=== PATIENT | female | born 1960 | race Caucasian/White ===

== ENCOUNTER → 2019-01-21 | Outpatient (REF) | payer MEDICAID ==
[~2019-01-21] MED LIST: ACEBUTOLOL200 MG OR; ADVAIR DISK1 IN; ADVAIR HF1 IN; ALPRAZOLAM0.5 MG PO; AMOXICILLIN500 MG OR; AMOXICILLIN875 MG OR; ASPIRIN EC325 MG PO; ASPIRIN325 MG PO; ATROVENT H17 MCG/ACT PO; BACTRIM DS1 TAB OR; BACTRIM DS1 TAB PO; COMBIVENT IN; COMBIVENT RESPIMAT IN; DECONG; DOXYCYCL HYC100 MG OR; DUONEB IN; FLEXERIL OR; IBUPROFEN400 MG OR; IBUPROFEN600 MG PO; LORTAB 7.5 OR; MACROBID100 MG PO; MECLIZINE25 MG PO; MEDDOSEPAK OR; MEDDOSEPAK PO; METOPROLOL SUCC25 MG PO; NAPROSYN500 MG OR; NEO/POLY/HC1 % OT; OMEPRAZOLE10 MG PO; ORPHENADRINE100 MG PO; PERCOCET 5/325M1 TAB OR; PRAVASTATIN SOD20 MG PO; PREDNISONE10 MG PO; PREDNISONE20 MG OR; PREDNISONE50 MG PO; PREVACID30 M1 OR; PREVACID30 M1 PO; PRILOSEC20 MG PO; PRILOSEC20 MG/CAP PO; PROAIR HFA108 MCG/AC IN; PROAIR HFA108 MCG/AC PO; PROMETHAZINE25 MG PO; REGLAN10 MG OR; RIFADIN300 MG OR; ROBITUSSIN AC OR; SEPTRA DS1 TAB OR; SINGULAIR10 MG PO; TENORMIN25 M1 PO; TENORMIN25 MG PO; TORADOL OR; TORADOL PO; TRIMOX500 MG PO; TYLENOL500 MG OR; ULTRAM50 M1 PO; ULTRAM50 MG OR; ULTRAM50 MG PO; XANAX0.5 MG PO; XANAX1 MG PO; ZITHROMAX250 MG OR; ZITHROMAX250 MG PO; ZITHROMAX500 MG OR; ZPAK OR
[2019-01-21 09:04] LABS: HEMATOCRIT 48.2 % (37.0-47.0); HEMOGLOBIN 14.9 g/dl (12.0-16.0); IMMATURE GRANULOCYTES 0.4 % (0.0-5.0); MEAN CORPUSCULAR HGB CONC 30.9 g/L CALC (32.0-36.0); NEUT# 5.55 thou/uL (2.00-7.15); RED BLOOD COUNT 5.13 mill/uL (4.20-5.60); RED CELL DISTRI WIDTH 13.4 % (11.5-15.5)
[2019-01-21 09:28] LABS: ALBUMIN 3.9 g/dL (3.2-5.0); ALKALINE PHOSPHATASE 75 u/l (38-126); ANION GAP 12 (6-22 (CALC)); BILIRUBIN, TOTAL 0.3 mg/dL (0.0-1.4); BUN 7 mg/dL (7-17); BUN/CREATININE RATIO 13 (12-20 (CALC)); CALCULATED LDLCHOLESTEROL 124 mg/dL (62-129 (CALC)); CARBON DIOXIDE 30 mmol/l (22-30); CHLORIDE 104 mmol/l (95-108); CHOLESTEROL HDL RATIO 3.8 (<4.4 (CALC)); CREATININE 0.6 mg/dL (0.5-1.0); GFR > 60 ML/MIN (>=60 (CALC)); GFR FOR AFR.AMER. > 60 ML/MIN (>=60 (CALC)); HDL CHOLESTEROL 51 mg/dL (>=40); POTASSIUM 4.5 mmol/l (3.5-5.1); SGOT/AST 20 u/l (14-36); SODIUM 141 mmol/l (137-146); TOTAL CHOLESTEROL 194 mg/dl (0-199); TOTAL PROTEIN 6.6 g/dL (6.3-8.2); TOTAL TRIGLYCERIDES 94 mg/dl (30-149); VLDL CHOLESTROL 19 mg/dl (2-49 (CALC))
[2019-01-21 09:52] LABS: TSH, 3RD GENERATION 2.85 uIU/mL (0.47 - 4.68)
== END | disposition home or self-care (01) ==
LOC: LAB 07:41
PROVIDERS: ATTEND Internal Medicine
DX: J43.1 Panlobular emphysema (principal); R05 Cough

== ENCOUNTER 2019-01-25 10:20 | Emergency (ER) | payer MEDICAID ==
[~2019-01-25] VITALS: Ht 149.9 cm; Wt 89.0 kg
--- NOTE | 2019-01-25 11:25 | NUR ---
BREATHING TREATMENT GIVEN. BREATHING TECH. FOR GOOD DEPOSITION TO THE LUNGS.
== END 2019-01-25 12:18 | disposition home or self-care (01) ==
LOC: ED 10:20
DX: R05 Cough (principal); R06.02 Shortness of breath; R09.81 Nasal congestion; F17.210 Nicotine dependence, cigarettes, uncomplicated

== ENCOUNTER 2019-02-15 10:16 | Emergency (ER) | payer MEDICAID ==
[~2019-02-15] VITALS: Ht 149.9 cm; Wt 90.0 kg
[2019-02-15 11:45] VITALS: BP 153/78
== END 2019-02-15 11:45 | disposition home or self-care (01) ==
LOC: ED 10:16
DX: S39.012A Strain of muscle, fascia and tendon of lower back, initial encounter (principal); M54.5 Low back pain; G89.29 Other chronic pain; J44.9 Chronic obstructive pulmonary disease, unspecified; F17.200 Nicotine dependence, unspecified, uncomplicated; X58.XXXA Exposure to other specified factors, initial encounter

== ENCOUNTER 2019-02-17 16:38 | Emergency (ER) | payer MEDICAID ==
[~2019-02-17] VITALS: Ht 149.9 cm; Wt 86.4 kg
[2019-02-17 17:30] LABS: HEMATOCRIT 47.9 % (37.0-47.0); HEMOGLOBIN 15.1 g/dl (12.0-16.0); IMMATURE GRANULOCYTES 0.6 % (0.0-5.0); MEAN CELL VOLUME 92.3 fL CALC (80.0-100.0); MEAN CORPUSCULAR HGB 29.1 pG CALC (26.0-32.0); MEAN CORPUSCULAR HGB CONC 31.5 g/L CALC (32.0-36.0); NEUT# 5.13 thou/uL (2.00-7.15); RED BLOOD COUNT 5.19 mill/uL (4.20-5.60); RED CELL DISTRI WIDTH 13.5 % (11.5-15.5)
[2019-02-17 17:41] LABS: ALBUMIN 4.1 g/dL (3.2-5.0); ALKALINE PHOSPHATASE 68 u/l (38-126); ANION GAP 12 (6-22 (CALC)); BILIRUBIN, TOTAL 0.3 mg/dL (0.0-1.4); BUN 11 mg/dL (7-17); BUN/CREATININE RATIO 16 (12-20 (CALC)); CARBON DIOXIDE 31 mmol/l (22-30); CHLORIDE 100 mmol/l (95-108); CREATININE 0.7 mg/dL (0.5-1.0); GFR > 60 ML/MIN (>=60 (CALC)); GFR FOR AFR.AMER. > 60 ML/MIN (>=60 (CALC)); POTASSIUM 4.4 mmol/l (3.5-5.1); SGOT/AST 20 u/l (14-36); SODIUM 139 mmol/l (137-146); TOTAL PROTEIN 6.7 g/dL (6.3-8.2)
[2019-02-17 17:53] LABS: MYOGLOBIN 23 ng/mL (0 - 62)
[2019-02-17 18:04] LABS: URINE BILIRUBIN - DIPSTICK NEGATIVE (NEGATIVE); URINE BLOOD DIPSTICK NEGATIVE (NEGATIVE); URINE COLOR YELLOW; URINE GLUCOSE - DIPSTICK NEGATIVE (NEGATIVE); URINE KETONE NEGATIVE (NEGATIVE); URINE LEUK ESTERASE NEGATIVE (NEGATIVE); URINE NITRITE - DIPSTICK NEGATIVE (Negative); URINE PROTEIN - DIPSTICK NEGATIVE (NEG-TRACE); URINE SPECIFIC GRAVITY <=1.005; URINE UROBILINOGEN - DIPSTICK 0.2 E.U./dL (0.2)
[2019-02-17 18:07] LABS: BARBITURATES NEGATIVE (NEGATIVE); COCAINE NEGATIVE (NEGATIVE); METHADONE NEGATIVE (NEGATIVE); OXCYCODONE NEGATIVE (NEGATIVE); TETRAHYDROCANNABIONOL NEGATIVE (NEGATIVE); TRICYLIC ANTIDEPRESSANTS NEGATIVE (NEGATIVE)
[2019-02-17 18:12] LABS: TSH, 3RD GENERATION 1.97 uIU/mL (0.47 - 4.68)
[2019-02-17 19:02] VITALS: BP 106/61
== END 2019-02-17 19:02 | disposition short-term general hospital (02) ==
LOC: ED 16:38
PROVIDERS: Family Medicine
DX: I47.2 Ventricular tachycardia (principal); J98.01 Acute bronchospasm; J44.9 Chronic obstructive pulmonary disease, unspecified; F17.210 Nicotine dependence, cigarettes, uncomplicated; R53.1 Weakness; R42 Dizziness and giddiness

== ENCOUNTER 2019-04-22 22:43 | Emergency (ER) | payer MEDICAID ==
[~2019-04-22] VITALS: Ht 149.9 cm; Wt 85.0 kg
[2019-04-22 23:21] LABS: HEMOGLOBIN 14.6 g/dl (12.0-16.0); IMMATURE GRANULOCYTES 0.8 % (0.0-5.0); MEAN CELL VOLUME 91.3 fL CALC (80.0-100.0); MEAN CORPUSCULAR HGB CONC 31.7 g/L CALC (32.0-36.0); NEUT# 5.89 thou/uL (2.00-7.15); RED BLOOD COUNT 5.04 mill/uL (4.20-5.60); RED CELL DISTRI WIDTH 13.3 % (11.5-15.5)
--- NOTE | 2019-04-22 23:22 | NUR ---
BREATHING TREATMENT GIVEN. BREATHING TECH. FOR GOOD DEPOSITION TO THE LUNGS.
[2019-04-22 23:36] LABS: ALBUMIN 4.1 g/dL (3.2-5.0); ALKALINE PHOSPHATASE 93 u/l (38-126); ANION GAP 11 (6-22 (CALC)); BILIRUBIN, TOTAL 0.2 mg/dL (0.0-1.4); BUN 9 mg/dL (7-17); BUN/CREATININE RATIO 11 (12-20 (CALC)); CARBON DIOXIDE 30 mmol/l (22-30); CHLORIDE 105 mmol/l (95-108); CREATININE 0.8 mg/dL (0.5-1.0); GFR > 60 ML/MIN (>=60 (CALC)); GFR FOR AFR.AMER. > 60 ML/MIN (>=60 (CALC)); POTASSIUM 4.2 mmol/l (3.5-5.1); SGOT/AST 27 u/l (14-36); SODIUM 142 mmol/l (137-146); TOTAL PROTEIN 6.7 g/dL (6.3-8.2)
[2019-04-22 23:49] LABS: MYOGLOBIN 22 ng/mL (0 - 62)
[2019-04-23] MEDS ORDERED: ATENOLOL25 MG PO (00:27)
[2019-04-23 00:41] VITALS: BP 129/78
== END 2019-04-23 00:41 | disposition home or self-care (01) ==
LOC: ED 22:43
PROVIDERS: Family Medicine
DX: R00.0 Tachycardia, unspecified (principal); F41.9 Anxiety disorder, unspecified; F17.200 Nicotine dependence, unspecified, uncomplicated; R00.2 Palpitations; R06.02 Shortness of breath; R50.9 Fever, unspecified

== ENCOUNTER 2019-05-07 22:26 | Emergency (ER) | payer MEDICAID ==
[~2019-05-07] VITALS: Ht 149.9 cm; Wt 85.4 kg
[~2019-05-07 22:26] MED LIST changes: +ATENOLOL25 MG PO
--- NOTE | 2019-05-07 23:01 | NUR ---
BREATHING TREATMENT GIVEN BACK TO BACK WITH 1 DUONEB AND 2 ALBUTEROL. BREATHING TECH. FOR GOOD DEPOSITION TO THE LUNGS.
[2019-05-07 23:10] LABS: HEMATOCRIT 43.4 % (37.0-47.0); HEMOGLOBIN 13.6 g/dl (12.0-16.0); IMMATURE GRANULOCYTES 0.4 % (0.0-5.0); MEAN CELL VOLUME 92.1 fL CALC (80.0-100.0); MEAN CORPUSCULAR HGB 28.9 pG CALC (26.0-32.0); MEAN CORPUSCULAR HGB CONC 31.3 g/L CALC (32.0-36.0); NEUT# 5.03 thou/uL (2.00-7.15); RED BLOOD COUNT 4.71 mill/uL (4.20-5.60); RED CELL DISTRI WIDTH 13.2 % (11.5-15.5)
[2019-05-07] MEDS ORDERED: PREDNISONE50 MG PO (23:53)
[2019-05-08 00:10] VITALS: BP 136/78
== END 2019-05-08 00:10 | disposition home or self-care (01) ==
LOC: ED 22:26
PROVIDERS: Family Medicine
DX: J45.901 Unspecified asthma with (acute) exacerbation (principal); J44.9 Chronic obstructive pulmonary disease, unspecified; F17.200 Nicotine dependence, unspecified, uncomplicated; R05 Cough; R06.2 Wheezing; R06.02 Shortness of breath

== ENCOUNTER 2019-05-14 12:58 | Emergency (ER) | payer MEDICAID ==
[~2019-05-14] VITALS: Ht 149.9 cm; Wt 84.5 kg
[2019-05-14] MEDS ORDERED: DILT-XR120 MG PO (13:39)
[2019-05-14 13:40] LABS: HEMATOCRIT 47.9 % (37.0-47.0); HEMOGLOBIN 15.2 g/dl (12.0-16.0); IMMATURE GRANULOCYTES 0.8 % (0.0-5.0); MEAN CELL VOLUME 91.2 fL CALC (80.0-100.0); MEAN CORPUSCULAR HGB CONC 31.7 g/L CALC (32.0-36.0); NEUT# 8.68 thou/uL (2.00-7.15); RED BLOOD COUNT 5.25 mill/uL (4.20-5.60); RED CELL DISTRI WIDTH 13.4 % (11.5-15.5)
[2019-05-14 13:54] LABS: ALBUMIN 4.3 g/dL (3.2-5.0); ALKALINE PHOSPHATASE 90 u/l (38-126); ANION GAP 13 (6-22 (CALC)); BUN 11 mg/dL (7-17); BUN/CREATININE RATIO 20 (12-20 (CALC)); CARBON DIOXIDE 30 mmol/l (22-30); CHLORIDE 99 mmol/l (95-108); CREATININE 0.5 mg/dL (0.5-1.0); GFR > 60 ML/MIN (>=60 (CALC)); GFR FOR AFR.AMER. > 60 ML/MIN (>=60 (CALC)); POTASSIUM 4.1 mmol/l (3.5-5.1); SGOT/AST 27 u/l (14-36); SODIUM 138 mmol/l (137-146); TOTAL PROTEIN 7.2 g/dL (6.3-8.2)
[2019-05-14 14:01] LABS: BILIRUBIN, TOTAL 0.4 mg/dL (0.0-1.4)
[2019-05-14 14:07] LABS: MYOGLOBIN 19 ng/mL (0 - 62)
[2019-05-14 15:53] LABS: URINE BILIRUBIN - DIPSTICK NEGATIVE (NEGATIVE); URINE BLOOD DIPSTICK NEGATIVE (NEGATIVE); URINE COLOR YELLOW; URINE GLUCOSE - DIPSTICK NEGATIVE (NEGATIVE); URINE KETONE NEGATIVE (NEGATIVE); URINE LEUK ESTERASE NEGATIVE (NEGATIVE); URINE NITRITE - DIPSTICK NEGATIVE (Negative); URINE PROTEIN - DIPSTICK NEGATIVE (NEG-TRACE); URINE SPECIFIC GRAVITY <=1.005; URINE UROBILINOGEN - DIPSTICK 0.2 E.U./dL (0.2)
[2019-05-14 16:17] VITALS: BP 116/59
== END 2019-05-14 16:26 | disposition home or self-care (01) ==
LOC: ED 12:58
PROVIDERS: Emergency Medicine
DX: F41.9 Anxiety disorder, unspecified (principal); R00.2 Palpitations; J44.9 Chronic obstructive pulmonary disease, unspecified; F17.210 Nicotine dependence, cigarettes, uncomplicated
CPT/HCPCS: J2060

== ENCOUNTER 2019-07-01 11:08 | Emergency (ER) | payer MEDICAID ==
[~2019-07-01] VITALS: Ht 149.9 cm; Wt 90.0 kg
[~2019-07-01 11:08] MED LIST changes: +DILT-XR120 MG PO
[2019-07-01] MEDS ORDERED: ASPIRIN81 MG PO (11:23)
[2019-07-01] MEDS ORDERED: ATENOLOL25 MG PO (11:23)
[2019-07-01 11:39] LABS: HEMATOCRIT 49.1 % (37.0-47.0); HEMOGLOBIN 15.4 g/dl (12.0-16.0); IMMATURE GRANULOCYTES 0.8 % (0.0-5.0); MEAN CELL VOLUME 92.5 fL CALC (80.0-100.0); MEAN CORPUSCULAR HGB CONC 31.4 g/L CALC (32.0-36.0); NEUT# 12.05 thou/uL (2.00-7.15); RED BLOOD COUNT 5.31 mill/uL (4.20-5.60); RED CELL DISTRI WIDTH 13.2 % (11.5-15.5)
[2019-07-01 11:56] LABS: ALBUMIN 4.5 g/dL (3.2-5.0); ALKALINE PHOSPHATASE 79 u/l (38-126); ANION GAP 13 (6-22 (CALC)); BILIRUBIN, TOTAL 0.3 mg/dL (0.0-1.4); BUN 10 mg/dL (7-17); BUN/CREATININE RATIO 17 (12-20 (CALC)); CARBON DIOXIDE 29 mmol/l (22-30); CHLORIDE 103 mmol/l (95-108); CREATININE 0.6 mg/dL (0.5-1.0); GFR > 60 ML/MIN (>=60 (CALC)); GFR FOR AFR.AMER. > 60 ML/MIN (>=60 (CALC)); LIPASE 93 u/l (23-300); POTASSIUM 3.8 mmol/l (3.5-5.1); SGOT/AST 20 u/l (14-36); SODIUM 141 mmol/l (137-146); TOTAL PROTEIN 7.4 g/dL (6.3-8.2)
[2019-07-01 11:59] LABS: URINE BILIRUBIN - DIPSTICK NEGATIVE (NEGATIVE); URINE BLOOD DIPSTICK NEGATIVE (NEGATIVE); URINE COLOR YELLOW; URINE GLUCOSE - DIPSTICK NEGATIVE (NEGATIVE); URINE KETONE NEGATIVE (NEGATIVE); URINE LEUK ESTERASE NEGATIVE (NEGATIVE); URINE NITRITE - DIPSTICK NEGATIVE (Negative); URINE PROTEIN - DIPSTICK NEGATIVE (NEG-TRACE); URINE SPECIFIC GRAVITY 1.015; URINE UROBILINOGEN - DIPSTICK 0.2 E.U./dL (0.2)
[2019-07-01] MEDS ORDERED: ONDANSETRON4 MG PO (12:14)
[2019-07-01 12:37] VITALS: BP 129/59
== END 2019-07-01 12:47 | disposition home or self-care (01) ==
LOC: ED 11:08
PROVIDERS: Family Medicine
DX: K52.9 Noninfective gastroenteritis and colitis, unspecified (principal); J44.9 Chronic obstructive pulmonary disease, unspecified; F17.210 Nicotine dependence, cigarettes, uncomplicated; R11.0 Nausea; D72.829 Elevated white blood cell count, unspecified

== ENCOUNTER 2019-07-22 12:34 | Emergency (ER) | payer MEDICAID ==
[~2019-07-22] VITALS: Ht 149.9 cm; Wt 86.6 kg
[~2019-07-22 12:34] MED LIST changes: +ASPIRIN81 MG PO; +ONDANSETRON4 MG PO
[2019-07-22] MEDS ORDERED: CYCLOBENZAPR5 MG PO (14:21)
[2019-07-22] MEDS ORDERED: PREDNISONE50 MG PO (14:21)
[2019-07-22 14:48] VITALS: BP 130/72
== END 2019-07-22 14:50 | disposition home or self-care (01) ==
LOC: ED 12:34
DX: M62.830 Muscle spasm of back (principal); M41.9 Scoliosis, unspecified; J44.9 Chronic obstructive pulmonary disease, unspecified; F17.200 Nicotine dependence, unspecified, uncomplicated

== ENCOUNTER 2019-10-08 18:15 | Emergency (ER) | payer MEDICAID ==
[~2019-10-08] VITALS: Ht 149.9 cm; Wt 82.0 kg
[~2019-10-08 18:15] MED LIST changes: +CYCLOBENZAPR5 MG PO
[2019-10-08] MEDS ORDERED: DOXYCYC MONO100 M2 PO (18:27)
[2019-10-08] MEDS ORDERED: PREDNISONE50 MG PO (18:27)
[2019-10-08 18:30] VITALS: BP 138/77
== END 2019-10-08 18:30 | disposition home or self-care (01) ==
LOC: ED 18:15
DX: J44.9 Chronic obstructive pulmonary disease, unspecified (principal); F17.210 Nicotine dependence, cigarettes, uncomplicated

== ENCOUNTER 2019-10-24 17:16 | Emergency (ER) | payer MEDICAID ==
[~2019-10-24] VITALS: Ht 149.9 cm; Wt 90.0 kg
[~2019-10-24 17:16] MED LIST changes: +DOXYCYC MONO100 M2 PO
[2019-10-24] MEDS ORDERED: TORADOL PO (19:05)
[2019-10-24] MEDS ORDERED: MEDDOSEPAK PO (19:05)
[2019-10-24 19:10] VITALS: BP 136/83
== END 2019-10-24 19:24 | disposition home or self-care (01) ==
LOC: ED 17:16
DX: M25.562 Pain in left knee (principal); J44.9 Chronic obstructive pulmonary disease, unspecified; F17.210 Nicotine dependence, cigarettes, uncomplicated

== ENCOUNTER 2019-10-25 21:44 | Emergency (ER) | payer MEDICAID ==
[~2019-10-25] VITALS: Ht 149.9 cm; Wt 83.6 kg
[2019-10-25 22:25] LABS: HEMATOCRIT 41.7 % (37.0-47.0); HEMOGLOBIN 13.4 g/dl (12.0-16.0); IMMATURE GRANULOCYTES 0.6 % (0.0-5.0); MEAN CELL VOLUME 91.4 fL CALC (80.0-100.0); MEAN CORPUSCULAR HGB 29.4 pG CALC (26.0-32.0); MEAN CORPUSCULAR HGB CONC 32.1 g/L CALC (32.0-36.0); NEUT# 5.51 thou/uL (2.00-7.15); RED BLOOD COUNT 4.56 mill/uL (4.20-5.60)
[2019-10-25 22:37] LABS: ALBUMIN 3.7 g/dL (3.2-5.0); ALKALINE PHOSPHATASE 74 u/l (38-126); BILIRUBIN, TOTAL 0.3 mg/dL (0.0-1.4); BUN 7 mg/dL (7-17); BUN/CREATININE RATIO 14 (12-20 (CALC)); CARBON DIOXIDE 26 mmol/l (22-30); CREATININE 0.5 mg/dL (0.5-1.0); GFR > 60 ML/MIN (>=60 (CALC)); GFR FOR AFR.AMER. > 60 ML/MIN (>=60 (CALC)); SGOT/AST 22 u/l (14-36); TOTAL PROTEIN 6.8 g/dL (6.3-8.2)
[2019-10-25 22:39] LABS: ANION GAP 11 (6-22 (CALC)); CHLORIDE 105 mmol/l (95-108); POTASSIUM 3.6 mmol/l (3.5-5.1); SODIUM 138 mmol/l (137-146)
[2019-10-25 23:33] VITALS: BP 173/75
== END 2019-10-25 23:33 | disposition home or self-care (01) ==
LOC: ED 21:44
DX: F41.9 Anxiety disorder, unspecified (principal); R00.2 Palpitations; J44.9 Chronic obstructive pulmonary disease, unspecified; F17.200 Nicotine dependence, unspecified, uncomplicated; Z99.81 Dependence on supplemental oxygen

== ENCOUNTER 2019-10-29 | Emergency (ER) | payer MEDICAID ==
[2019-10-29 22:51] LABS: HEMATOCRIT 45.5 % (37.0-47.0); HEMOGLOBIN 14.2 g/dl (12.0-16.0); IMMATURE GRANULOCYTES 0.2 % (0.0-5.0); MEAN CELL VOLUME 92.7 fL CALC (80.0-100.0); MEAN CORPUSCULAR HGB 28.9 pG CALC (26.0-32.0); MEAN CORPUSCULAR HGB CONC 31.2 g/L CALC (32.0-36.0); NEUT# 4.97 thou/uL (2.00-7.15); RED BLOOD COUNT 4.91 mill/uL (4.20-5.60); RED CELL DISTRI WIDTH 12.8 % (11.5-15.5)
[2019-10-29 23:06] LABS: ALBUMIN 3.9 g/dL (3.2-5.0); ALKALINE PHOSPHATASE 72 u/l (38-126); ANION GAP 10 (6-22 (CALC)); BILIRUBIN, TOTAL 0.3 mg/dL (0.0-1.4); BUN 5 mg/dL (7-17); BUN/CREATININE RATIO 9 (12-20 (CALC)); CARBON DIOXIDE 27 mmol/l (22-30); CHLORIDE 107 mmol/l (95-108); CREATININE 0.5 mg/dL (0.5-1.0); GFR > 60 ML/MIN (>=60 (CALC)); GFR FOR AFR.AMER. > 60 ML/MIN (>=60 (CALC)); POTASSIUM 4.3 mmol/l (3.5-5.1); SGOT/AST 22 u/l (14-36); SODIUM 139 mmol/l (137-146); TOTAL PROTEIN 6.8 g/dL (6.3-8.2)
== END 2019-10-30 00:55 | disposition home or self-care (01) ==
PROVIDERS: Emergency Medicine
DX: R53.1 Weakness (principal); J44.9 Chronic obstructive pulmonary disease, unspecified; F17.210 Nicotine dependence, cigarettes, uncomplicated

== ENCOUNTER 2019-11-04 | Emergency (ER) | payer MEDICAID ==
--- NOTE | 2019-11-04 21:24 | NUR ---
BREATHING TREATMENT GIVEN. BREATHING TECH. FOR GOOD DEPOSITION TO THE LUNGS.
[2019-11-04 21:26] LABS: HEMATOCRIT 44.5 % (37.0-47.0); HEMOGLOBIN 14.1 g/dl (12.0-16.0); IMMATURE GRANULOCYTES 0.4 % (0.0-5.0); MEAN CELL VOLUME 92.5 fL CALC (80.0-100.0); MEAN CORPUSCULAR HGB 29.3 pG CALC (26.0-32.0); MEAN CORPUSCULAR HGB CONC 31.7 g/L CALC (32.0-36.0); NEUT# 8.79 thou/uL (2.00-7.15); RED BLOOD COUNT 4.81 mill/uL (4.20-5.60)
[2019-11-04 21:27] LABS: URINE BILIRUBIN - DIPSTICK NEGATIVE (NEGATIVE); URINE BLOOD DIPSTICK NEGATIVE (NEGATIVE); URINE COLOR YELLOW; URINE GLUCOSE - DIPSTICK NEGATIVE (NEGATIVE); URINE KETONE NEGATIVE (NEGATIVE); URINE LEUK ESTERASE NEGATIVE (NEGATIVE); URINE NITRITE - DIPSTICK NEGATIVE (Negative); URINE PH 7.5 (4.5-8.0); URINE PROTEIN - DIPSTICK NEGATIVE (NEG-TRACE); URINE SPECIFIC GRAVITY <=1.005; URINE UROBILINOGEN - DIPSTICK 0.2 E.U./dL (0.2)
== END 2019-11-04 22:20 | disposition home or self-care (01) ==
PROVIDERS: Family Medicine
DX: J44.1 Chronic obstructive pulmonary disease with (acute) exacerbation (principal); D72.829 Elevated white blood cell count, unspecified; F17.210 Nicotine dependence, cigarettes, uncomplicated; J18.9 Pneumonia, unspecified organism

== ENCOUNTER 2019-11-05 14:19 | Inpatient (IN) | payer MEDICAID ==
[~2019-11-05] VITALS: Ht 149.9 cm; Wt 83.0 kg
[2019-11-05 14:45] VITALS: BP 112/75
[2019-11-05 16:09] LABS: HEMATOCRIT 43.7 % (37.0-47.0); HEMOGLOBIN 13.9 g/dl (12.0-16.0); IMMATURE GRANULOCYTES 0.4 % (0.0-5.0); MEAN CELL VOLUME 92.6 fL CALC (80.0-100.0); MEAN CORPUSCULAR HGB 29.4 pG CALC (26.0-32.0); MEAN CORPUSCULAR HGB CONC 31.8 g/L CALC (32.0-36.0); NEUT# 5.46 thou/uL (2.00-7.15); RED BLOOD COUNT 4.72 mill/uL (4.20-5.60); RED CELL DISTRI WIDTH 13.3 % (11.5-15.5)
[2019-11-05 17:10] LABS: ALBUMIN 3.8 g/dL (3.2-5.0); ALKALINE PHOSPHATASE 74 u/l (38-126); ANION GAP 11 (6-22 (CALC)); BILIRUBIN, TOTAL 0.2 mg/dL (0.0-1.4); BUN 5 mg/dL (7-17); BUN/CREATININE RATIO 10 (12-20 (CALC)); CARBON DIOXIDE 30 mmol/l (22-30); CHLORIDE 101 mmol/l (95-108); CREATININE 0.5 mg/dL (0.5-1.0); GFR > 60 ML/MIN (>=60 (CALC)); GFR FOR AFR.AMER. > 60 ML/MIN (>=60 (CALC)); POTASSIUM 3.7 mmol/l (3.5-5.1); SGOT/AST 20 u/l (14-36); SODIUM 138 mmol/l (137-146); TOTAL PROTEIN 6.7 g/dL (6.3-8.2)
[2019-11-05 18:40] VITALS: BP 117/74
[2019-11-06 00:12] VITALS: BP 103/58
[2019-11-06 02:57] VITALS: BP 99/58
[2019-11-06 07:45] VITALS: BP 101/53
[2019-11-06 14:44] VITALS: BP 111/54
[2019-11-06 19:52] VITALS: BP 130/59
[2019-11-07 00:23] VITALS: BP 98/69
[2019-11-07 06:02] VITALS: BP 112/61
[2019-11-07 08:10] VITALS: BP 110/78
[2019-11-07 11:00] VITALS: BP 115/41
[2019-11-07 16:00] VITALS: BP 112/62
[2019-11-07 20:08] VITALS: BP 140/59
[2019-11-08] VITALS (7 sets, daily range): BP systolic 102–140; BP diastolic 50–74
[2019-11-09 03:27] VITALS: BP 119/66
[2019-11-09 07:45] VITALS: BP 127/61
[2019-11-09] MEDS ORDERED: AZACTAM2 GM IV (09:56)
[2019-11-09] MEDS ORDERED: PREDNISONE10 MG PO (09:56)
[2019-11-09 11:13] VITALS: BP 115/62
[2019-11-09 15:54] VITALS: BP 121/62
== END 2019-11-09 20:30 | disposition home or self-care (01) | DRG 178 ==
LOC: MS2 14:19
PROVIDERS: ADMIT Internal Medicine; ATTEND Internal Medicine
DX: J15.1 Pneumonia due to Pseudomonas (principal); J44.0 Chronic obstructive pulmonary disease with (acute) lower respiratory infection; J44.1 Chronic obstructive pulmonary disease with (acute) exacerbation; M41.9 Scoliosis, unspecified; M47.9 Spondylosis, unspecified; E66.9 Obesity, unspecified; K44.9 Diaphragmatic hernia without obstruction or gangrene; K21.9 Gastro-esophageal reflux disease without esophagitis; F41.0 Panic disorder [episodic paroxysmal anxiety]; F17.200 Nicotine dependence, unspecified, uncomplicated; Z68.36 Body mass index [BMI] 36.0-36.9, adult; Z99.81 Dependence on supplemental oxygen; Z88.1 Allergy status to other antibiotic agents
CPT/HCPCS: J1650; Q9967; S0073

== ENCOUNTER 2019-11-28 09:22 | Observation (INO) | payer MEDICAID ==
[~2019-11-28] VITALS: Ht 149.9 cm; Wt 83.0 kg
[~2019-11-28 09:22] MED LIST changes: +AZACTAM2 GM IV
--- NOTE | 2019-11-28 09:40 | NUR ---
PT AMB TO ROOM WITH STEADY GAIR
[2019-11-28] MEDS ORDERED: MECLIZINE12.5 M1 PO (09:59)
[2019-11-28] MEDS ORDERED: ROBITUSSIN200 MG/10 PO (09:59)
[2019-11-28 10:31] LABS: HEMATOCRIT 44.7 % (37.0-47.0); HEMOGLOBIN 14.1 g/dl (12.0-16.0); IMMATURE GRANULOCYTES 0.6 % (0.0-5.0); MEAN CELL VOLUME 91.8 fL CALC (80.0-100.0); MEAN CORPUSCULAR HGB CONC 31.5 g/L CALC (32.0-36.0); NEUT# 14.07 thou/uL (2.00-7.15); RED BLOOD COUNT 4.87 mill/uL (4.20-5.60); RED CELL DISTRI WIDTH 13.2 % (11.5-15.5)
--- NOTE | 2019-11-28 10:40 | NUR ---
PT RESTING ON STRETCHER; NO S/S OF DISTRESS NOTED; O2 NC IN PLACE; MONITORING DEVICES IN PLACE; VSS; CALL LIGHT WITHIN REACH; WILL CONTINUE TO MONITOR
[2019-11-28 11:02] LABS: PROTHROMBIN TIME 10.3 SECONDS (9.0-12.5)
[2019-11-28 11:05] LABS: ALBUMIN 4.1 g/dL (3.2-5.0); ALKALINE PHOSPHATASE 66 u/l (38-126); ANION GAP 12 (6-22 (CALC)); BILIRUBIN, TOTAL 0.8 mg/dL (0.0-1.4); BUN 7 mg/dL (7-17); BUN/CREATININE RATIO 17 (12-20 (CALC)); CARBON DIOXIDE 27 mmol/l (22-30); CHLORIDE 102 mmol/l (95-108); CREATININE 0.4 mg/dL (0.5-1.0); GFR > 60 ML/MIN (>=60 (CALC)); GFR FOR AFR.AMER. > 60 ML/MIN (>=60 (CALC)); MAGNESIUM 1.6 mg/dL (1.6-2.3); POTASSIUM 4.5 mmol/l (3.5-5.1); SGOT/AST 36 u/l (14-36); SODIUM 136 mmol/l (137-146)
--- NOTE | 2019-11-28 11:40 | NUR ---
DR BALDERAS AT BEDSIDE TO DISCUSS PLAN TO ADMIT;
--- NOTE | 2019-11-28 12:13 | NUR ---
PT RESTING ON STRETCHER; ADVISED OF CONTINUED WAIT TIME; VSS; CALL LIGHT WITHIN REACH; WILL CONTINUE TO MONITOR
--- NOTE | 2019-11-28 13:00 | NUR ---
PT ASSISTED TO BR; PT AMB WITH STEADY GAIT
--- NOTE | 2019-11-28 13:35 | NUR ---
Admission Note Report Given to: GHADA JONES Transported by: X Wheelchair Stretcher Transported with: X Nurse Transporter X Patent IV X O2 X Orchestra Director Location: ICU X [facility]
[2019-11-28 13:40] VITALS: BP 130/78
--- NOTE | 2019-11-28 14:07 | NUR ---
PT ARRIVES TO ROOM 278 VIA WHEELCHAIR FROM ER ACCOMPANIED BY DEDRA URRUTIA. PT IS ALERT, ORIENTED X 3, NO DISTRESS NOTED. LUNGS ARE SLIGHTLY COARSE AND TIGHT PER DIAGNOSIS, 2 LPM NC. ADMISSION ASSESSMENT COMPLETED WITHOUT DIFFICULTY. CALL TOLENTINO AT BEDSIDE.
[2019-11-28 14:12] LABS: URINE BILIRUBIN - DIPSTICK NEGATIVE (NEGATIVE); URINE BLOOD DIPSTICK NEGATIVE (NEGATIVE); URINE COLOR YELLOW; URINE GLUCOSE - DIPSTICK NEGATIVE (NEGATIVE); URINE KETONE NEGATIVE (NEGATIVE); URINE LEUK ESTERASE NEGATIVE (NEGATIVE); URINE NITRITE - DIPSTICK NEGATIVE (Negative); URINE PH 6.5 (4.5-8.0); URINE PROTEIN - DIPSTICK NEGATIVE (NEG-TRACE); URINE UROBILINOGEN - DIPSTICK 0.2 E.U./dL (0.2)
[2019-11-28 15:00] VITALS: BP 99/59
[2019-11-28 20:49] VITALS: BP 126/71
--- NOTE | 2019-11-28 20:59 | NUR ---
ASSESSMENT COMPLETED. IV SITE PATENT AND SL, FLUSHES WELL. UPDATED ON POC. O2 INFUSING PER NC PER ORDER. PO FLUIDS OFFERED. ENCOURAGED TO CALL FOR ANY NEEDS. CALL LIGHT IS IN REACH. WILL CONTINUE TO MONITOR.
--- NOTE | 2019-11-28 23:40 | NUR ---
PT. IS RESTING IN BED WITH EYES CLOSED; RESP. EVEN AND UNLABORED. CALL LIGHT IS IN REACH.
[2019-11-29] VITALS (7 sets, daily range): BP systolic 95–129; BP diastolic 60–77
--- NOTE | 2019-11-29 05:55 | NUR ---
RESTING IN BED WITH NO DISTRESS NOTED; DENIES NEEDS/PAIN. COFFFEE PROVIDED AND WATER. CALL LIGHT IS IN REACH. WILL CONTINUE TO MONITOR.
--- NOTE | 2019-11-29 08:43 | NUR ---
PT STATED SHE HAS A HEADACHE 12/13. MEDICATED PT WITH TYLENOL. ASSESSMENT DONE. TELE IN PLACE. LUNGS SOUND/COARSE PT IS A&O X3. PT DENIES ANY NEEDS AT THIS TIME. CALL LIGHT IN REACH.
--- NOTE | 2019-11-29 10:20 | NUR ---
ED CALLED STATED PT TELE READING IS ST 120. PT IS VISITING IN ROOM WITH FAMILY. PT IS COUGHING . PT STATED SHE IS FINE. PULSE IS NOW 115. PT DENIES NEEDS AT THIS TIME. CALL LIGHT IN REACH.
--- NOTE | 2019-11-29 11:16 | NUR ---
PT STATED SHE HAS ANXIETY AND NEEDS HER XANAX. PT STATED SHE IS CONCERN OF HER HEALTH. MEDICATED PT WITH HER XANAX. PT DENIES ANY OTHER NEEDS AT THIS TIME. CALL LIGHT IN REACH.
--- NOTE | 2019-11-29 15:00 | NUR ---
PT IS RESTING IN BED ON HER LEFT SIDE. PT DENIES PAIN. PT HAS HER OWN 02 MONITOR IN FINGER. PT DENIES NEEDS AT THIS TIME. CALL LIGHT IN REACH.
--- NOTE | 2019-11-29 19:00 | NUR ---
RCEIEVED REPORT FROM DAY NURSE PATIENT AWAKE TALKING ON THE PHONE, ON O2 @ 2LPM VIA NC STATED NON PRODUCTIVE COUGH, ON TELE ST 110, WITH SALINE LOCK ON RFA G20 PATENT AND FLUSHES WELL, CALL LIGHT AT REACH.
--- NOTE | 2019-11-29 23:44 | NUR ---
PATIENT C/O ACID REFLUX, NOTIFIED DR. CASTILLO WITH ORDERS MADE.
--- NOTE | 2019-11-30 02:00 | NUR ---
PATIENT APPEARS TO BE SLEEPING SIDE LYING POSITION EVEN UNLABORED BREATHING REMAINS ON O2 @ 2LPM VIA NC, CALL LIGHT AT REACH.
[2019-11-30 04:30] VITALS: BP 119/66
--- NOTE | 2019-11-30 05:10 | NUR ---
PATIENT C/O HEADACHE AND ANXIETY, PRN TYLENOL AND XANAX GIVEN WILL REEVALUATE.
[2019-11-30 05:41] LABS: ANION GAP 10 (6-22 (CALC)); BUN 12 mg/dL (7-17); BUN/CREATININE RATIO 27 (12-20 (CALC)); CARBON DIOXIDE 28 mmol/l (22-30); CHLORIDE 105 mmol/l (95-108); CREATININE 0.4 mg/dL (0.5-1.0); GFR > 60 ML/MIN (>=60 (CALC)); GFR FOR AFR.AMER. > 60 ML/MIN (>=60 (CALC)); POTASSIUM 5.1 mmol/l (3.5-5.1); SODIUM 138 mmol/l (137-146)
[2019-11-30 05:48] LABS: HEMATOCRIT 41.5 % (37.0-47.0); HEMOGLOBIN 12.8 g/dl (12.0-16.0); IMMATURE GRANULOCYTES 1.5 % (0.0-5.0); MEAN CELL VOLUME 93.5 fL CALC (80.0-100.0); MEAN CORPUSCULAR HGB 28.8 pG CALC (26.0-32.0); MEAN CORPUSCULAR HGB CONC 30.8 g/L CALC (32.0-36.0); NEUT# 16.37 thou/uL (2.00-7.15); RED BLOOD COUNT 4.44 mill/uL (4.20-5.60); RED CELL DISTRI WIDTH 13.6 % (11.5-15.5)
--- NOTE | 2019-11-30 07:00 | NUR ---
SHIFT CHANGE REPORT, PT AWAKE ALERT AND ORIENTED RESTING IN BED, C/O DISCOMFORT TO LEFT CHEST, O2 @ 2L VIA NC IN PLACE, TELE MONITOR IN PLACE, BED IN LOWEST POSITION AND CALL TOLENTINO IN REACH.
[2019-11-30 09:53] VITALS: BP 107/57
[2019-11-30 11:23] VITALS: BP 112/70
--- NOTE | 2019-11-30 12:00 | NUR ---
ATE MEAL AND RESTING IN BED, ALL NEEDS MET, MEDICAL TEAM ROUNDED AND DISCUSSED PLAN OF CARE.
[2019-11-30 15:00] VITALS: BP 109/53
[2019-11-30] MEDS ORDERED: PREDNISONE10 MG PO (18:05)
[2019-11-30] MEDS ORDERED: BACTRIM DS1 TAB PO (18:05)
--- NOTE | 2019-12-02 15:09 | NUR ---
Pneumonia Discharge P/U call completed 12/02/19. Pt. is doing well. No fever,chills, or excessive fatigue. Breathing continues to improve. Pt. attempted to call PCP for follow up appt and was told they had not received the D/C paperwork and would call her to schedule after receipt. Suggested pt. call office again if she did not hear from them within 2-3 days. Pt. is taking prescribed medications. Prednisone makes her flushed and jittery, but she is taking it. She has prior experience with this medication with similar reaction. No fever, O2SATs generally 95-97. Says she is resting and doing as instructed. No needs expressed. Appreciative of call.
== END 2019-11-30 19:15 | disposition home or self-care (01) ==
LOC: ED 09:22 → ED-I 11:50 → ED 12:03 → MS2 12:04
PROVIDERS: Internal Medicine Infectious Disease; ADMIT Internal Medicine; ATTEND Internal Medicine
DX: J15.6 Pneumonia due to other Gram-negative bacteria (principal); J44.0 Chronic obstructive pulmonary disease with (acute) lower respiratory infection; J44.1 Chronic obstructive pulmonary disease with (acute) exacerbation; I10 Essential (primary) hypertension; F17.210 Nicotine dependence, cigarettes, uncomplicated; F41.0 Panic disorder [episodic paroxysmal anxiety]; Z87.01 Personal history of pneumonia (recurrent); Z99.81 Dependence on supplemental oxygen; Z88.8 Allergy status to other drugs, medicaments and biological substances; Z88.2 Allergy status to sulfonamides; Z91.19 Patient's noncompliance with other medical treatment and regimen
CPT/HCPCS: G0378

== ENCOUNTER 2019-12-04 | Emergency (ER) | payer MEDICAID ==
[~2019-12-04] MED LIST changes: +MECLIZINE12.5 M1 PO; +ROBITUSSIN200 MG/10 PO
[2019-12-04 20:01] LABS: HEMATOCRIT 45.8 % (37.0-47.0); IMMATURE GRANULOCYTES 5.3 % (0.0-5.0); MEAN CELL VOLUME 89.1 fL CALC (80.0-100.0); MEAN CORPUSCULAR HGB CONC 32.5 g/L CALC (32.0-36.0); NEUT# 10.44 thou/uL (2.00-7.15); RED BLOOD COUNT 5.14 mill/uL (4.20-5.60); RED CELL DISTRI WIDTH 13.1 % (11.5-15.5)
[2019-12-04 20:02] LABS: URINE BILIRUBIN - DIPSTICK NEGATIVE (NEGATIVE); URINE BLOOD DIPSTICK NEGATIVE (NEGATIVE); URINE COLOR YELLOW; URINE GLUCOSE - DIPSTICK NEGATIVE (NEGATIVE); URINE KETONE NEGATIVE (NEGATIVE); URINE LEUK ESTERASE NEGATIVE (NEGATIVE); URINE NITRITE - DIPSTICK NEGATIVE (Negative); URINE PROTEIN - DIPSTICK NEGATIVE (NEG-TRACE); URINE SPECIFIC GRAVITY <=1.005; URINE UROBILINOGEN - DIPSTICK 0.2 E.U./dL (0.2)
[2019-12-04 20:04] LABS: HEMOGLOBIN 14.9 g/dl (12.0-16.0)
[2019-12-04 20:15] LABS: ALBUMIN 4.1 g/dL (3.2-5.0); ALKALINE PHOSPHATASE 89 u/l (38-126); ANION GAP 15 (6-22 (CALC)); BUN 18 mg/dL (7-17); BUN/CREATININE RATIO 27 (12-20 (CALC)); CARBON DIOXIDE 24 mmol/l (22-30); CHLORIDE 99 mmol/l (95-108); CREATININE 0.7 mg/dL (0.5-1.0); GFR > 60 ML/MIN (>=60 (CALC)); GFR FOR AFR.AMER. > 60 ML/MIN (>=60 (CALC)); POTASSIUM 5.1 mmol/l (3.5-5.1); SGOT/AST 31 u/l (14-36); SODIUM 133 mmol/l (137-146); TOTAL PROTEIN 7.1 g/dL (6.3-8.2)
[2019-12-04 20:17] LABS: BILIRUBIN, TOTAL 0.2 mg/dL (0.0-1.4)
== END 2019-12-04 20:41 | disposition home or self-care (01) ==
PROVIDERS: Family Medicine
DX: I10 Essential (primary) hypertension (principal); D72.829 Elevated white blood cell count, unspecified; B37.9 Candidiasis, unspecified; F17.200 Nicotine dependence, unspecified, uncomplicated

== ENCOUNTER 2019-12-06 | Emergency (ER) | payer MEDICAID ==
--- NOTE | 2019-12-06 19:36 | NUR ---
BREATHING TREATMENTGIVEN.
[2019-12-06 20:08] LABS: HEMATOCRIT 43.3 % (37.0-47.0); HEMOGLOBIN 14.2 g/dl (12.0-16.0); MEAN CELL VOLUME 89.5 fL CALC (80.0-100.0); MEAN CORPUSCULAR HGB 29.3 pG CALC (26.0-32.0); MEAN CORPUSCULAR HGB CONC 32.8 g/L CALC (32.0-36.0); NEUT# 8.23 thou/uL (2.00-7.15); RED BLOOD COUNT 4.84 mill/uL (4.20-5.60); RED CELL DISTRI WIDTH 13.2 % (11.5-15.5)
[2019-12-06 20:09] LABS: IMMATURE GRANULOCYTES 6.4 % (0.0-5.0)
[2019-12-06 20:25] LABS: ALBUMIN 3.8 g/dL (3.2-5.0); ALKALINE PHOSPHATASE 86 u/l (38-126); ANION GAP 14 (6-22 (CALC)); BUN 15 mg/dL (7-17); BUN/CREATININE RATIO 23 (12-20 (CALC)); CARBON DIOXIDE 25 mmol/l (22-30); CHLORIDE 99 mmol/l (95-108); CREATININE 0.7 mg/dL (0.5-1.0); GFR > 60 ML/MIN (>=60 (CALC)); GFR FOR AFR.AMER. > 60 ML/MIN (>=60 (CALC)); POTASSIUM 4.9 mmol/l (3.5-5.1); SGOT/AST 24 u/l (14-36); SODIUM 133 mmol/l (137-146); TOTAL PROTEIN 6.6 g/dL (6.3-8.2)
[2019-12-06 20:38] LABS: BILIRUBIN, TOTAL 0.3 mg/dL (0.0-1.4)
== END 2019-12-06 21:22 | disposition home or self-care (01) ==
DX: J44.1 Chronic obstructive pulmonary disease with (acute) exacerbation (principal); I10 Essential (primary) hypertension; F17.200 Nicotine dependence, unspecified, uncomplicated; Z99.81 Dependence on supplemental oxygen; R07.9 Chest pain, unspecified

== ENCOUNTER 2020-03-28 16:28 | Emergency (ER) | payer MEDICAID ==
[2020-03-28] MEDS ORDERED: MUCINEX DM1 TA1 PO (16:43)
[2020-03-28] MEDS ORDERED: NEBULIZE2 PO (18:16)
[2020-03-28] MEDS ORDERED: ZPAK PO (18:16)
[2020-03-28] MEDS ORDERED: PREDNISONE20 MG PO (18:16)
[2020-03-28] MEDS ORDERED: IPRATROPIU0.5 MG/3 M IN (18:20)
[2020-03-28 18:23] VITALS: BP 100/54
--- NOTE | 2020-04-03 11:32 | NUR ---
Notified patient of negative Covid results. Advised patient to follow up with PCP or return to ED with urgent needs. Advised patient to continue Covid prevention measures.
== END 2020-03-28 18:25 | disposition home or self-care (01) ==
LOC: ED 16:28
DX: J43.9 Emphysema, unspecified (principal); I10 Essential (primary) hypertension; F17.210 Nicotine dependence, cigarettes, uncomplicated; Z20.828 Contact with and (suspected) exposure to other viral communicable diseases

== ENCOUNTER 2020-04-14 00:06 | Emergency (ER) | payer MEDICAID ==
[~2020-04-14 00:06] MED LIST changes: +IPRATROPIU0.5 MG/3 M IN; +MUCINEX DM1 TA1 PO; +NEBULIZE2 PO; +PREDNISONE20 MG PO; +ZPAK PO
[2020-04-14 02:46] LABS: HEMATOCRIT 41.3 % (37.0-47.0); HEMOGLOBIN 13.3 g/dl (12.0-16.0); IMMATURE GRANULOCYTES 0.6 % (0.0-5.0); MEAN CELL VOLUME 91.2 fL CALC (80.0-100.0); MEAN CORPUSCULAR HGB 29.4 pG CALC (26.0-32.0); MEAN CORPUSCULAR HGB CONC 32.2 g/dL CAL (32.0-36.0); NEUT# 9.11 thou/uL (2.00-7.15); RED BLOOD COUNT 4.53 mill/uL (4.20-5.60)
[2020-04-14 02:46] LABS: URINE BILIRUBIN - DIPSTICK NEGATIVE (NEGATIVE); URINE BLOOD DIPSTICK NEGATIVE (NEGATIVE); URINE COLOR YELLOW; URINE GLUCOSE - DIPSTICK NEGATIVE (NEGATIVE); URINE KETONE NEGATIVE (NEGATIVE); URINE LEUK ESTERASE NEGATIVE (NEGATIVE); URINE NITRITE - DIPSTICK NEGATIVE (Negative); URINE PH 6.5 (4.5-8.0); URINE PROTEIN - DIPSTICK NEGATIVE (NEG-TRACE); URINE SPECIFIC GRAVITY <=1.005; URINE UROBILINOGEN - DIPSTICK 0.2 E.U./dL (0.2)
[2020-04-14 03:11] LABS: ALKALINE PHOSPHATASE 77 u/l (38-126); BILIRUBIN, TOTAL 0.2 mg/dL (0.0-1.4); BUN 10 mg/dL (7-17); BUN/CREATININE RATIO 20 (12-20 (CALC)); CHLORIDE 104 mmol/l (95-108); CREATININE 0.5 mg/dL (0.5-1.0); GFR > 60 ML/MIN (>=60 (CALC)); GFR FOR AFR.AMER. > 60 ML/MIN (>=60 (CALC)); SGOT/AST 21 u/l (14-36); SODIUM 139 mmol/l (137-146); TOTAL PROTEIN 6.9 g/dL (6.3-8.2)
[2020-04-14 03:15] LABS: ANION GAP 6 (6-22 (CALC)); CARBON DIOXIDE 33 mmol/l (22-30); POTASSIUM 3.6 mmol/l (3.5-5.1)
[2020-04-14 03:23] LABS: MYOGLOBIN 19 ng/mL (0 - 62)
[2020-04-14 03:58] LABS: INTERNATIONAL NORMALIZED RATIO 0.9 RATIO (0.7-1.3); PROTHROMBIN TIME 9.8 SECONDS (9.0-12.5)
[2020-04-14 04:42] VITALS: BP 111/60
== END 2020-04-14 04:52 | disposition home or self-care (01) ==
LOC: ED 00:06
PROVIDERS: Emergency Medicine
DX: R00.2 Palpitations (principal); J43.9 Emphysema, unspecified; I10 Essential (primary) hypertension; F17.200 Nicotine dependence, unspecified, uncomplicated
CPT/HCPCS: Q9967

== ENCOUNTER 2021-03-16 15:51 | Emergency (ER) | payer MEDICAID ==
[~2021-03-16] VITALS: Ht 149.9 cm; Wt 90.0 kg
[2021-03-16] MEDS ORDERED: LORATADINE10 M1 PO (16:37)
[2021-03-16 16:46] LABS: HEMATOCRIT 47.1 % (37.0-47.0); HEMOGLOBIN 14.9 g/dl (12.0-16.0); IMMATURE GRANULOCYTES 0.4 % (0.0-5.0); MEAN CELL VOLUME 90.2 fL CALC (80.0-100.0); MEAN CORPUSCULAR HGB 28.5 pG CALC (26.0-32.0); MEAN CORPUSCULAR HGB CONC 31.6 g/dL CAL (32.0-36.0); NEUT# 12.35 thou/uL (2.00-7.15); RED BLOOD COUNT 5.22 mill/uL (4.20-5.60); RED CELL DISTRI WIDTH 13.1 % (11.5-15.5)
[2021-03-16 17:04] LABS: ALBUMIN 3.9 g/dL (3.2-5.0); ALKALINE PHOSPHATASE 83 u/l (38-126); BUN 8 mg/dL (7-17); BUN/CREATININE RATIO 13 (12-20 (CALC)); CARBON DIOXIDE 27 mmol/l (22-30); CHLORIDE 97 mmol/l (95-108); CREATININE 0.6 mg/dL (0.5-1.0); GFR > 60 ML/MIN (>=60 (CALC)); GFR FOR AFR.AMER. > 60 ML/MIN (>=60 (CALC)); LIPASE 43 u/l (23-300); POTASSIUM 4.2 mmol/l (3.5-5.1); SGOT/AST 26 u/l (14-36)
[2021-03-16 17:08] LABS: ANION GAP 11 (6-22 (CALC)); BILIRUBIN, TOTAL 0.6 mg/dL (0.0-1.4); SODIUM 131 mmol/l (137-146)
[2021-03-16 18:33] VITALS: BP 106/66
[2021-05-21] MEDS ORDERED: CLARITIN10 M2 PO (10:14)
== END 2021-03-16 18:32 | disposition home or self-care (01) ==
LOC: ED 15:51
DX: A08.4 Viral intestinal infection, unspecified (principal); I10 Essential (primary) hypertension; F41.9 Anxiety disorder, unspecified; J43.9 Emphysema, unspecified; F17.200 Nicotine dependence, unspecified, uncomplicated; Z20.822 Contact with and (suspected) exposure to COVID-19

== ENCOUNTER 2021-05-16 20:01 | Emergency (ER) | payer MEDICAID ==
[~2021-05-16] VITALS: Ht 149.9 cm; Wt 79.0 kg
[~2021-05-16 20:01] MED LIST changes: +LORATADINE10 M1 PO
[2021-05-16 20:39] LABS: HEMATOCRIT 44.8 % (37.0-47.0); IMMATURE GRANULOCYTES 0.3 % (0.0-5.0); MEAN CELL VOLUME 91.2 fL CALC (80.0-100.0); MEAN CORPUSCULAR HGB 28.5 pG CALC (26.0-32.0); MEAN CORPUSCULAR HGB CONC 31.3 g/dL CAL (32.0-36.0); NEUT# 4.93 thou/uL (2.00-7.15); RED BLOOD COUNT 4.91 mill/uL (4.20-5.60)
--- NOTE | 2021-05-16 20:50 | NUR ---
BREATHING TREATMENT GIVEN.
[2021-05-16] MEDS ORDERED: CLARITIN10 M2 PO (21:56)
[2021-05-16 22:00] VITALS: BP 155/71
[2021-05-21] MEDS ORDERED: CLARITIN10 M2 PO (10:14)
== END 2021-05-16 22:05 | disposition home or self-care (01) ==
LOC: ED 20:01
PROVIDERS: Family Medicine
DX: J43.9 Emphysema, unspecified (principal); I10 Essential (primary) hypertension; F41.9 Anxiety disorder, unspecified; F17.200 Nicotine dependence, unspecified, uncomplicated

== ENCOUNTER 2021-06-08 19:33 | Emergency (ER) | payer MEDICAID ==
[~2021-06-08 19:33] MED LIST changes: +CLARITIN10 M2 PO
[2021-06-08] MEDS ORDERED: PROAIR HFA108 MCG/AC (20:36)
[2021-06-08] MEDS ORDERED: [UNRECOGNIZED DRUG - OTHER] (20:37)
[2021-06-08] MEDS ORDERED: AUGMENTIN500TAB PO (20:37)
[2021-06-08 21:19] VITALS: BP 107/74
== END 2021-06-08 21:19 | disposition home or self-care (01) ==
LOC: ED 19:33
DX: J43.9 Emphysema, unspecified (principal); I10 Essential (primary) hypertension; F41.9 Anxiety disorder, unspecified; F17.200 Nicotine dependence, unspecified, uncomplicated; Z20.822 Contact with and (suspected) exposure to COVID-19

== ENCOUNTER → 2021-07-07 | Outpatient (REF) ==
[~2021-07-07] MED LIST changes: +AUGMENTIN500TAB PO; +PROAIR HFA108 MCG/AC; +[UNRECOGNIZED DRUG - OTHER]
== END | disposition home or self-care (01) | DRG 645 ==
LOC: LAB 09:51
PROVIDERS: ATTEND Nurse Practitioner Family
DX: E04.1 Nontoxic single thyroid nodule (principal)

== ENCOUNTER 2021-08-10 15:09 | Emergency (ER) | payer MEDICAID ==
[~2021-08-10] VITALS: Ht 149.9 cm; Wt 90.0 kg
[2021-08-10] MEDS ORDERED: AMOX/K CLAV875 M1 PO (19:55)
[2021-08-10] MEDS ORDERED: MEDDOSEPAK PO (19:55)
[2021-08-10 20:27] VITALS: BP 100/57
== END 2021-08-10 20:29 | disposition home or self-care (01) ==
LOC: ED 15:09
DX: J43.9 Emphysema, unspecified (principal); I10 Essential (primary) hypertension; F41.9 Anxiety disorder, unspecified; Z20.822 Contact with and (suspected) exposure to COVID-19; F17.200 Nicotine dependence, unspecified, uncomplicated

== ENCOUNTER 2021-09-05 21:12 | Emergency (ER) | payer MEDICAID ==
[~2021-09-05] VITALS: Ht 149.9 cm; Wt 79.5 kg
[~2021-09-05 21:12] MED LIST changes: +AMOX/K CLAV875 M1 PO
[2021-09-05] MEDS ORDERED: ALLEGRA-D 2424 HOUR PO (23:09)
[2021-09-05] MEDS ORDERED: MECLIZINE25 MG PO (23:09)
[2021-09-05 23:28] VITALS: BP 152/79
== END 2021-09-05 23:29 | disposition home or self-care (01) ==
LOC: ED 21:12
DX: H69.90 Unspecified Eustachian tube disorder, unspecified ear (principal); J43.9 Emphysema, unspecified; I10 Essential (primary) hypertension; F41.9 Anxiety disorder, unspecified; F17.210 Nicotine dependence, cigarettes, uncomplicated

== ENCOUNTER 2021-10-20 14:32 | Emergency (ER) | payer MEDICAID ==
[~2021-10-20] VITALS: Ht 149.9 cm; Wt 77.3 kg
[~2021-10-20 14:32] MED LIST changes: +ALLEGRA-D 2424 HOUR PO
[2021-10-20 16:31] LABS: HEMATOCRIT 42.7 % (37.0-47.0); HEMOGLOBIN 13.8 g/dl (12.0-16.0); IMMATURE GRANULOCYTES 0.5 % (0.0-5.0); MEAN CELL VOLUME 90.7 fL CALC (80.0-100.0); MEAN CORPUSCULAR HGB 29.3 pG CALC (26.0-32.0); MEAN CORPUSCULAR HGB CONC 32.3 g/dL CAL (32.0-36.0); NEUT# 7.69 thou/uL (2.00-7.15); RED BLOOD COUNT 4.71 mill/uL (4.20-5.60); RED CELL DISTRI WIDTH 12.6 % (11.5-15.5)
[2021-10-20 16:33] LABS: URINE BILIRUBIN - DIPSTICK NEGATIVE (NEGATIVE); URINE BLOOD DIPSTICK NEGATIVE (NEGATIVE); URINE COLOR YELLOW; URINE GLUCOSE - DIPSTICK NEGATIVE (NEGATIVE); URINE KETONE NEGATIVE (NEGATIVE); URINE LEUK ESTERASE NEGATIVE (NEGATIVE); URINE PH 6.5 (4.5-8.0); URINE PROTEIN - DIPSTICK NEGATIVE (NEG-TRACE); URINE UROBILINOGEN - DIPSTICK 0.2 E.U./dL (0.2)
[2021-10-20 16:36] LABS: URINE NITRITE - DIPSTICK NEGATIVE (Negative)
[2021-10-20 16:47] LABS: ALBUMIN 3.7 g/dL (3.2-5.0); ALKALINE PHOSPHATASE 66 u/l (38-126); ANION GAP 10 (6-22 (CALC)); BILIRUBIN, TOTAL 0.3 mg/dL (0.0-1.4); BUN 7 mg/dL (8-23); BUN/CREATININE RATIO 12 (12-20 (CALC)); CARBON DIOXIDE 29 mmol/l (22-30); CHLORIDE 102 mmol/l (95-108); CREATININE 0.6 mg/dL (0.5-1.0); GFR > 60 ML/MIN (>=60 (CALC)); GFR FOR AFR.AMER. > 60 ML/MIN (>=60 (CALC)); LIPASE 71 u/l (23-300); POTASSIUM 3.5 mmol/l (3.5-5.1); SGOT/AST 22 u/l (9-36); SODIUM 138 mmol/l (137-146); TOTAL PROTEIN 6.7 g/dL (6.3-8.2)
[2021-10-20] MEDS ORDERED: ZOFRAN4 MG/TAB PO (17:27)
[2021-10-20 17:54] VITALS: BP 115/77
== END 2021-10-20 17:54 | disposition home or self-care (01) ==
LOC: ED 14:32
DX: K29.70 Gastritis, unspecified, without bleeding (principal); I10 Essential (primary) hypertension; J43.9 Emphysema, unspecified; F41.9 Anxiety disorder, unspecified; F17.210 Nicotine dependence, cigarettes, uncomplicated; Z20.822 Contact with and (suspected) exposure to COVID-19

== ENCOUNTER 2021-12-01 12:58 | Emergency (ER) | payer MEDICAID ==
[~2021-12-01] VITALS: Ht 149.9 cm; Wt 80.0 kg
[~2021-12-01 12:58] MED LIST changes: +ZOFRAN4 MG/TAB PO
[2021-12-01] MEDS ORDERED: TRELEGY ELLIPTA1 AER (13:46)
[2021-12-01] MEDS ORDERED: OMEPRAZOLE DR20 MG (14:25)
[2021-12-01] MEDS ORDERED: CORTISPORIN OTI10 M2 AD (14:37)
[2021-12-01] MEDS ORDERED: ZPAK PO (14:37)
[2021-12-01 14:55] VITALS: BP 110/55
[2021-12-01] MEDS ORDERED: AMOX/K CLAV875 M1 PO (15:00)
== END 2021-12-01 14:55 | disposition home or self-care (01) ==
LOC: ED 12:58
DX: H66.91 Otitis media, unspecified, right ear (principal); I10 Essential (primary) hypertension; J43.9 Emphysema, unspecified; F41.9 Anxiety disorder, unspecified; F17.200 Nicotine dependence, unspecified, uncomplicated; Z87.01 Personal history of pneumonia (recurrent); Z20.822 Contact with and (suspected) exposure to COVID-19

== ENCOUNTER 2021-12-31 19:42 | Emergency (ER) | payer MEDICAID ==
[~2021-12-31] VITALS: Ht 149.9 cm; Wt 79.0 kg
[~2021-12-31 19:42] MED LIST changes: +CORTISPORIN OTI10 M2 AD; +OMEPRAZOLE DR20 MG; +TRELEGY ELLIPTA1 AER
[2021-12-31] MEDS ORDERED: FLONASE AL50 MCG/ACT (21:14)
[2021-12-31] MEDS ORDERED: SINGULAIR10 MG PO (21:15)
[2021-12-31 21:34] LABS: HEMOGLOBIN 13.9 g/dl (12.0-16.0); IMMATURE GRANULOCYTES 0.4 % (0.0-5.0); MEAN CELL VOLUME 93.6 fL CALC (80.0-100.0); MEAN CORPUSCULAR HGB 29.6 pG CALC (26.0-32.0); MEAN CORPUSCULAR HGB CONC 31.6 g/dL CAL (32.0-36.0); NEUT# 5.68 thou/uL (2.00-7.15); RED BLOOD COUNT 4.7 mill/uL (4.20-5.60)
[2021-12-31 21:35] LABS: URINE BILIRUBIN - DIPSTICK NEGATIVE (NEGATIVE); URINE BLOOD DIPSTICK NEGATIVE (NEGATIVE); URINE COLOR YELLOW; URINE GLUCOSE - DIPSTICK NEGATIVE (NEGATIVE); URINE KETONE NEGATIVE (NEGATIVE); URINE LEUK ESTERASE NEGATIVE (NEGATIVE); URINE PH 6.5 (4.5-8.0); URINE PROTEIN - DIPSTICK NEGATIVE (NEG-TRACE); URINE UROBILINOGEN - DIPSTICK 0.2 E.U./dL (0.2)
[2021-12-31 21:40] LABS: URINE NITRITE - DIPSTICK NEGATIVE (Negative)
[2021-12-31 21:52] LABS: ALBUMIN 4.1 g/dL (3.2-5.0); ALKALINE PHOSPHATASE 75 u/l (38-126); ANION GAP 10 (6-22 (CALC)); BILIRUBIN, TOTAL 0.2 mg/dL (0.0-1.4); BUN 7 mg/dL (8-23); BUN/CREATININE RATIO 11 (12-20 (CALC)); CARBON DIOXIDE 29 mmol/l (22-30); CHLORIDE 103 mmol/l (95-108); CREATININE 0.6 mg/dL (0.5-1.0); GFR > 60 ML/MIN (>=60 (CALC)); GFR FOR AFR.AMER. > 60 ML/MIN (>=60 (CALC)); LIPASE 99 u/l (23-300); POTASSIUM 3.9 mmol/l (3.5-5.1); SGOT/AST 25 u/l (9-36); SODIUM 139 mmol/l (137-146); TOTAL PROTEIN 6.9 g/dL (6.3-8.2)
[2021-12-31 22:00] LABS: ACT PARTIAL THROMBO TIME 23.8 SECONDS (20.0-32.5); INTERNATIONAL NORMALIZED RATIO 0.9 RATIO (0.7-1.3); PROTHROMBIN TIME 9.8 SECONDS (9.0-12.5)
[2021-12-31] MEDS ORDERED: TESSALON PERLE100 MG PO (22:28)
[2021-12-31] MEDS ORDERED: ZPAK PO (22:28)
[2021-12-31 22:40] VITALS: BP 137/66
== END 2021-12-31 22:50 | disposition home or self-care (01) ==
LOC: ED 19:42
DX: J40 Bronchitis, not specified as acute or chronic (principal); I10 Essential (primary) hypertension; J43.9 Emphysema, unspecified; F41.9 Anxiety disorder, unspecified; F17.200 Nicotine dependence, unspecified, uncomplicated; Z20.822 Contact with and (suspected) exposure to COVID-19

== ENCOUNTER 2022-02-19 18:51 | Emergency (ER) | payer MEDICAID ==
[~2022-02-19 18:51] MED LIST changes: +FLONASE AL50 MCG/ACT; +TESSALON PERLE100 MG PO
== END 2022-02-19 21:01 | disposition left against medical advice (07) | DRG 951 ==
LOC: ED 18:51 → LWOBS 19:39
DX: Z53.21 Procedure and treatment not carried out due to patient leaving prior to being seen by health care provider (principal)

== ENCOUNTER 2022-03-12 21:32 | Emergency (ER) | payer MEDICAID ==
[~2022-03-12] VITALS: Ht 149.9 cm; Wt 80.0 kg
[2022-03-12 22:21] LABS: HEMATOCRIT 44.3 % (37.0-47.0); IMMATURE GRANULOCYTES 0.3 % (0.0-5.0); MEAN CELL VOLUME 92.3 fL CALC (80.0-100.0); MEAN CORPUSCULAR HGB 29.2 pG CALC (26.0-32.0); MEAN CORPUSCULAR HGB CONC 31.6 g/dL CAL (32.0-36.0); NEUT# 4.79 thou/uL (2.00-7.15); RED BLOOD COUNT 4.8 mill/uL (4.20-5.60); RED CELL DISTRI WIDTH 12.8 % (11.5-15.5)
[2022-03-12 22:39] LABS: URINE BILIRUBIN - DIPSTICK NEGATIVE (NEGATIVE); URINE BLOOD DIPSTICK NEGATIVE (NEGATIVE); URINE COLOR YELLOW; URINE GLUCOSE - DIPSTICK NEGATIVE (NEGATIVE); URINE KETONE NEGATIVE (NEGATIVE); URINE LEUK ESTERASE NEGATIVE (NEGATIVE); URINE PROTEIN - DIPSTICK NEGATIVE (NEG-TRACE); URINE SPECIFIC GRAVITY <=1.005; URINE UROBILINOGEN - DIPSTICK 0.2 E.U./dL (0.2)
[2022-03-12 22:41] LABS: URINE NITRITE - DIPSTICK NEGATIVE (Negative)
[2022-03-12 22:44] LABS: ALBUMIN 3.8 g/dL (3.2-5.0); ALKALINE PHOSPHATASE 82 u/l (38-126); ANION GAP 12 (6-22 (CALC)); BUN 7 mg/dL (8-23); BUN/CREATININE RATIO 13 (12-20 (CALC)); CARBON DIOXIDE 28 mmol/l (22-30); CHLORIDE 102 mmol/l (95-108); CREATININE 0.6 mg/dL (0.5-1.0); GFR > 60 ML/MIN (>=60 (CALC)); GFR FOR AFR.AMER. > 60 ML/MIN (>=60 (CALC)); LIPASE 108 u/l (23-300); POTASSIUM 3.6 mmol/l (3.5-5.1); SGOT/AST 24 u/l (9-36); SODIUM 138 mmol/l (137-146); TOTAL PROTEIN 6.4 g/dL (6.3-8.2)
[2022-03-12 22:45] LABS: BILIRUBIN, TOTAL 0.1 mg/dL (0.0-1.4)
[2022-03-13 00:47] VITALS: BP 112/62
== END 2022-03-13 00:57 | disposition home or self-care (01) ==
LOC: ED 21:32
PROVIDERS: Internal Medicine
DX: M54.9 Dorsalgia, unspecified (principal); K44.9 Diaphragmatic hernia without obstruction or gangrene; I10 Essential (primary) hypertension; F41.9 Anxiety disorder, unspecified; J43.9 Emphysema, unspecified; F17.210 Nicotine dependence, cigarettes, uncomplicated; Z87.442 Personal history of urinary calculi

== ENCOUNTER 2022-08-28 18:24 | Emergency (ER) | payer MEDICAID ==
[2022-08-28] VITALS (9 sets, daily range): BP systolic 102–132; BP diastolic 66–75
[~2022-08-28] VITALS: Ht 149.9 cm; Wt 80.4 kg
[2022-08-28 20:15] LABS: URINE BILIRUBIN - DIPSTICK NEGATIVE (NEGATIVE); URINE BLOOD DIPSTICK NEGATIVE (NEGATIVE); URINE COLOR YELLOW; URINE GLUCOSE - DIPSTICK NEGATIVE (NEGATIVE); URINE KETONE NEGATIVE (NEGATIVE); URINE LEUK ESTERASE NEGATIVE (NEGATIVE); URINE PH 6.5 (4.5-8.0); URINE PROTEIN - DIPSTICK NEGATIVE (NEG-TRACE); URINE SPECIFIC GRAVITY 1.015; URINE UROBILINOGEN - DIPSTICK 0.2 E.U./dL (0.2)
[2022-08-28 20:16] LABS: URINE NITRITE - DIPSTICK NEGATIVE (Negative)
[2022-08-28 20:28] LABS: HEMATOCRIT 43.8 % (37.0-47.0); IMMATURE GRANULOCYTES 0.3 % (0.0-5.0); MEAN CELL VOLUME 91.6 fL CALC (80.0-100.0); MEAN CORPUSCULAR HGB 29.3 pG CALC (26.0-32.0); NEUT# 7.16 thou/uL (2.00-7.15); RED BLOOD COUNT 4.78 mill/uL (4.20-5.60); RED CELL DISTRI WIDTH 12.9 % (11.5-15.5)
[2022-08-28 20:36] LABS: ALBUMIN 4.2 g/dL (3.2-5.0); ALKALINE PHOSPHATASE 97 u/l (38-126); AMYLASE 67 u/l (30-110); ANION GAP 10 (6-22 (CALC)); BILIRUBIN, TOTAL 0.3 mg/dL (0.0-1.4); BUN 8 mg/dL (8-23); BUN/CREATININE RATIO 12 (12-20 (CALC)); CARBON DIOXIDE 29 mmol/l (22-30); CHLORIDE 102 mmol/l (95-108); CREATININE 0.6 mg/dL (0.5-1.0); GFR FOR AFR.AMER. > 60 ML/MIN (>=60 (CALC)); GFR OTHER RACES > 60 ML/MIN (>=60 (CALC)); LIPASE 79 u/l (23-300); POTASSIUM 3.9 mmol/l (3.5-5.1); SGOT/AST 25 u/l (9-36); SODIUM 137 mmol/l (137-146); TOTAL PROTEIN 7.2 g/dL (6.3-8.2)
[2022-08-28 20:48] LABS: MYOGLOBIN 26 ng/mL (0 - 62)
[2022-08-28] MEDS ORDERED: ULTRAM50 M1 PO (22:05)
== END 2022-08-28 23:12 | disposition home or self-care (01) ==
LOC: ED 18:24
PROVIDERS: Emergency Medicine
DX: K29.70 Gastritis, unspecified, without bleeding (principal); K44.9 Diaphragmatic hernia without obstruction or gangrene; I10 Essential (primary) hypertension; F41.9 Anxiety disorder, unspecified; J43.9 Emphysema, unspecified; F17.200 Nicotine dependence, unspecified, uncomplicated; Z20.822 Contact with and (suspected) exposure to COVID-19
CPT/HCPCS: Q9967; S0164

== ENCOUNTER 2022-10-06 10:01 | Emergency (ER) | payer MEDICAID ==
[~2022-10-06] VITALS: Ht 149.9 cm; Wt 80.0 kg
[2022-10-06 10:06] VITALS: BP 164/86
[2022-10-06 10:15] VITALS: BP 160/74
[2022-10-06 11:03] LABS: HEMATOCRIT 41.3 % (37.0-47.0); HEMOGLOBIN 13.5 g/dl (12.0-16.0); IMMATURE GRANULOCYTES 0.3 % (0.0-5.0); MEAN CELL VOLUME 91.8 fL CALC (80.0-100.0); MEAN CORPUSCULAR HGB CONC 32.7 g/dL CAL (32.0-36.0); NEUT# 5.34 thou/uL (2.00-7.15); RED BLOOD COUNT 4.5 mill/uL (4.20-5.60); RED CELL DISTRI WIDTH 12.8 % (11.5-15.5)
[2022-10-06 11:13] LABS: ALBUMIN 3.9 g/dL (3.2-5.0); ALKALINE PHOSPHATASE 67 u/l (38-126); ANION GAP 9 (6-22 (CALC)); BILIRUBIN, TOTAL 0.2 mg/dL (0.0-1.4); BUN 4 mg/dL (8-23); BUN/CREATININE RATIO 7 (12-20 (CALC)); CARBON DIOXIDE 28 mmol/l (22-30); CHLORIDE 105 mmol/l (95-108); CREATININE 0.6 mg/dL (0.5-1.0); GFR FOR AFR.AMER. > 60 ML/MIN (>=60 (CALC)); GFR OTHER RACES > 60 ML/MIN (>=60 (CALC)); POTASSIUM 3.8 mmol/l (3.5-5.1); SGOT/AST 26 u/l (9-36); SODIUM 137 mmol/l (137-146); TOTAL PROTEIN 6.6 g/dL (6.3-8.2)
[2022-10-06 11:17] VITALS: BP 134/60
[2022-10-06 11:30] VITALS: BP 116/64
[2022-10-06 11:45] VITALS: BP 118/60
[2022-10-06 12:00] VITALS: BP 118/59
== END 2022-10-06 12:14 | disposition home or self-care (01) ==
LOC: ED 10:01
PROVIDERS: Family Medicine
DX: R42 Dizziness and giddiness (principal); I10 Essential (primary) hypertension; F41.9 Anxiety disorder, unspecified; J43.9 Emphysema, unspecified; F17.200 Nicotine dependence, unspecified, uncomplicated

== ENCOUNTER 2022-11-09 12:27 | Emergency (ER) | payer MEDICAID ==
[~2022-11-09] VITALS: Ht 149.9 cm; Wt 82.0 kg
[2022-11-09 12:37] VITALS: BP 146/80
[2022-11-09 12:45] VITALS: BP 127/75
[2022-11-09 13:00] VITALS: BP 132/71
== END 2022-11-09 13:00 | disposition home or self-care (01) ==
LOC: ED 12:27
DX: J06.9 Acute upper respiratory infection, unspecified (principal); I10 Essential (primary) hypertension; F41.9 Anxiety disorder, unspecified; J43.9 Emphysema, unspecified; F17.200 Nicotine dependence, unspecified, uncomplicated

== ENCOUNTER 2023-01-20 22:19 | Emergency (ER) | payer MEDICAID ==
[~2023-01-20] VITALS: Ht 149.9 cm; Wt 82.0 kg
[2023-01-20 22:36] VITALS: BP 158/91
[2023-01-20] MEDS ORDERED: PRAVASTATIN20 MG PO (22:51)
[2023-01-20] MEDS ORDERED: VENTOLIN HFA IN (22:53)
[2023-01-20 23:00] VITALS: BP 143/83
[2023-01-20 23:23] LABS: BASO% 0.4 % (0-3); HEMATOCRIT 43.3 % (37.0-47.0); HEMOGLOBIN 13.6 g/dl (12.0-16.0); IMMATURE GRANULOCYTES 0.4 % (0.0-5.0); LYMPH% 35.1 % (15-41); MEAN CORPUSCULAR HGB 28.6 pG CALC (26.0-32.0); MEAN CORPUSCULAR HGB CONC 31.4 g/dL CAL (32.0-36.0); MONO% 10.6 % (2-13); NEUT# 4.82 thou/uL (2.00-7.15); NEUT% 52.5 % (42-76); RED BLOOD COUNT 4.76 mill/uL (4.20-5.60); RED CELL DISTRI WIDTH 12.6 % (11.5-15.5)
[2023-01-20 23:41] LABS: ALKALINE PHOSPHATASE 71 u/l (38-126); ANION GAP 10 (6-22 (CALC)); BUN 7 mg/dL (8-23); BUN/CREATININE RATIO 12 (12-20 (CALC)); CARBON DIOXIDE 29 mmol/l (22-30); CHLORIDE 101 mmol/l (95-108); CREATININE 0.6 mg/dL (0.5-1.0); GFR FOR AFR.AMER. > 60 ML/MIN (>=60 (CALC)); GFR OTHER RACES > 60 ML/MIN (>=60 (CALC)); SODIUM 136 mmol/l (137-146); TOTAL PROTEIN 6.7 g/dL (6.3-8.2)
[2023-01-20 23:43] VITALS: BP 136/87
[2023-01-20 23:45] LABS: BILIRUBIN, TOTAL 0.1 mg/dL (0.02-1.3); SGOT/AST 53 u/l (9-36)
[2023-01-20 23:48] LABS: URINE BILIRUBIN - DIPSTICK NEGATIVE (NEGATIVE); URINE BLOOD DIPSTICK NEGATIVE (NEGATIVE); URINE COLOR YELLOW; URINE GLUCOSE - DIPSTICK NEGATIVE (NEGATIVE); URINE KETONE NEGATIVE (NEGATIVE); URINE LEUK ESTERASE NEGATIVE (NEGATIVE); URINE PROTEIN - DIPSTICK NEGATIVE (NEG-TRACE); URINE UROBILINOGEN - DIPSTICK 0.2 E.U./dL (0.2)
[2023-01-20 23:51] LABS: URINE NITRITE - DIPSTICK NEGATIVE (Negative)
[2023-01-21] VITALS: BP 120/72
[2023-01-21 00:30] VITALS: BP 126/78
[2023-01-21 00:50] VITALS: BP 126/78
== END 2023-01-21 00:59 | disposition home or self-care (01) ==
LOC: ED 22:19
PROVIDERS: Emergency Medicine
DX: R42 Dizziness and giddiness (principal); F41.0 Panic disorder [episodic paroxysmal anxiety]; I10 Essential (primary) hypertension; J44.9 Chronic obstructive pulmonary disease, unspecified; F17.200 Nicotine dependence, unspecified, uncomplicated

== ENCOUNTER 2023-03-08 21:01 | Emergency (ER) | payer MEDICAID ==
[~2023-03-08] VITALS: Ht 149.9 cm; Wt 81.0 kg
[~2023-03-08 21:01] MED LIST changes: +PRAVASTATIN20 MG PO; +VENTOLIN HFA IN
[2023-03-08 21:14] VITALS: BP 152/101
[2023-03-08 21:15] VITALS: BP 157/82
[2023-03-08 21:48] LABS: BASO% 0.5 % (0-3); EOS% 1.1 % (0-8); HEMATOCRIT 43.7 % (37.0-47.0); HEMOGLOBIN 13.6 g/dl (12.0-16.0); IMMATURE GRANULOCYTES 0.6 % (0.0-5.0); LYMPH% 23.9 % (15-41); MEAN CELL VOLUME 92.6 fL CALC (80.0-100.0); MEAN CORPUSCULAR HGB 28.8 pG CALC (26.0-32.0); MEAN CORPUSCULAR HGB CONC 31.1 g/dL CAL (32.0-36.0); MONO% 15.6 % (2-13); NEUT# 4.84 thou/uL (2.00-7.15); NEUT% 58.3 % (42-76); RED BLOOD COUNT 4.72 mill/uL (4.20-5.60); RED CELL DISTRI WIDTH 12.9 % (11.5-15.5)
[2023-03-08 22:51] VITALS: BP 152/101
== END 2023-03-08 22:56 | disposition home or self-care (01) ==
LOC: ED
PROVIDERS: Family Medicine
DX: J06.9 Acute upper respiratory infection, unspecified (principal); I10 Essential (primary) hypertension; F41.9 Anxiety disorder, unspecified; J43.9 Emphysema, unspecified; F17.200 Nicotine dependence, unspecified, uncomplicated; Z20.822 Contact with and (suspected) exposure to COVID-19

== ENCOUNTER 2023-04-26 19:12 | Emergency (ER) | payer MEDICAID ==
[~2023-04-26] VITALS: Ht 149.9 cm; Wt 79.0 kg
[2023-04-26] MEDS ORDERED: COZAAR25 MG PO (20:27)
[2023-04-26] MEDS ORDERED: TENORMIN25 MG PO (20:27)
[2023-04-26] MEDS ORDERED: OXYGEN (20:28)
[2023-04-26] MEDS ORDERED: ASPIRINCHW 81MG PO (20:29)
[2023-04-26 20:40] LABS: URINE BILIRUBIN - DIPSTICK NEGATIVE (NEGATIVE); URINE BLOOD DIPSTICK NEGATIVE (NEGATIVE); URINE COLOR YELLOW; URINE GLUCOSE - DIPSTICK NEGATIVE (NEGATIVE); URINE KETONE NEGATIVE (NEGATIVE); URINE LEUK ESTERASE NEGATIVE (NEGATIVE); URINE NITRITE - DIPSTICK NEGATIVE (Negative); URINE PROTEIN - DIPSTICK NEGATIVE (NEG-TRACE); URINE SPECIFIC GRAVITY <=1.005; URINE UROBILINOGEN - DIPSTICK 0.2 E.U./dL (0.2)
[2023-04-26] MEDS ORDERED: NAPROXEN500 MG PO (21:51)
[2023-04-26] MEDS ORDERED: CYCLOBENZAPRINE10 MG PO (21:51)
[2023-04-26 22:05] VITALS: BP 148/84
== END 2023-04-26 22:07 | disposition home or self-care (01) ==
LOC: ED 19:12
PROVIDERS: Emergency Medicine
DX: M47.816 Spondylosis without myelopathy or radiculopathy, lumbar region (principal); M41.9 Scoliosis, unspecified; I10 Essential (primary) hypertension; F41.9 Anxiety disorder, unspecified; J43.9 Emphysema, unspecified; F17.200 Nicotine dependence, unspecified, uncomplicated

== ENCOUNTER 2023-05-13 22:18 | Observation (INO) | payer MEDICAID ==
[~2023-05-13] VITALS: Ht 149.9 cm; Wt 82.6 kg
[~2023-05-13 22:18] MED LIST changes: +ASPIRINCHW 81MG PO; +COZAAR25 MG PO; +CYCLOBENZAPRINE10 MG PO; +NAPROXEN500 MG PO; +OXYGEN
[2023-05-14 04:16] VITALS: BP 118/51
[2023-05-14 07:00] VITALS: BP 112/53
[2023-05-14 07:11] VITALS: BP 112/53
[2023-05-14] MEDS ORDERED: TRELEGY ELLIPTA1 AER (08:14)
[2023-05-14 10:52] VITALS: BP 113/51
[2023-05-14 14:32] VITALS: BP 104/40
== END 2023-05-14 16:47 | disposition home or self-care (01) ==
LOC: ED 22:18 → MS2 23:27
PROVIDERS: ADMIT Internal Medicine; ATTEND Internal Medicine
DX: G45.9 Transient cerebral ischemic attack, unspecified (principal); I65.23 Occlusion and stenosis of bilateral carotid arteries; I10 Essential (primary) hypertension; J43.9 Emphysema, unspecified; J96.11 Chronic respiratory failure with hypoxia; F41.9 Anxiety disorder, unspecified; K44.9 Diaphragmatic hernia without obstruction or gangrene; K21.9 Gastro-esophageal reflux disease without esophagitis; F17.200 Nicotine dependence, unspecified, uncomplicated; Z99.81 Dependence on supplemental oxygen
CPT/HCPCS: G0378; J2060